=== PATIENT | male | born 1965 | race Hispanic/Latino ===

== ENCOUNTER → 2024-03-16 | Outpatient (CLI) | payer MEDICAID ==
[~2024-03-16] VITALS: Ht 175.3 cm; Wt 68.0 kg
[~2024-03-16] MED LIST: ACET-2079 PO; ACET-2247 PO; ARIP20TA63 PO; ASCO500C18 PO; ASPI-1443 PO; ATOR40TA71 PO; CLOP-31 PO; DOCU100T PO; EPOE10003 IJ; FAMO20TA8 PO; FLUD0.1T2 PO; FOLI0.8T43 PO; GLUC1KIT IJ; INSU3INS3 SQ; LEVO100C4 PO; MIDO10TA PO; SANTO TP; SEVE0.8P PO; TAMS-1 PO; lispro SQ; medihoney TP; prostat PO
[2024-03-16 15:16] LABS: BASOPHILS # (AUTO) 0.08 K/uL (0.00-0.20); BASOPHILS % (AUTO) 0.8 % (0.0-5.0); EOSINOPHILS # (AUTO) 0.77 K/uL (0.00-0.70); EOSINOPHILS % (AUTO) 7.7 % (0.0-8.0); HEMATOCRIT 39.5 % (42-54); IMMATURE GRANULOCYTE ABSOLUTE 0.06 K/uL (0-1); LYMPHOCYTES # (AUTO) 1.1 K/uL (1.0-4.8); LYMPHOCYTES % (AUTO) 11.2 % (21.0-51.0); MEAN CORPUSCULAR HEMOGLOBIN 25.9 pg (27.0-33.0); MEAN CORPUSCULAR HGB CONC 28.4 g/dL (32.0-36.0); MEAN CORPUSCULAR VOLUME 91.4 fL (79-99); MONOCYTES # (AUTO) 0.5 K/uL (0.1-1.0); MONOCYTES % (AUTO) 5.3 % (3.0-13.0); NEUTROPHILS # (AUTO) 7.5 K/uL (1.8-7.7); NEUTROPHILS % (AUTO) 74.4 % (40.0-77.0); PLATELET COUNT (AUTO) 350 K/uL (130-400); RED BLOOD CELL COUNT(AUTO) 4.32 MIL/uL (4.50-6.20); RED CELL DISTRIBUTION WIDTH 18.3 % (11.0-15.5)
[2024-03-16 15:23] VITALS: BP 137/75; PULSE 87; RESP 18; TEMP 97.9
[2024-03-16 15:27] LABS: INR 1.06 (0.85-1.15); PROTHROMBIN TIME 11.4 SEC (9.6-11.6)
[2024-03-16 15:28] LABS: CREATININE 2.8 mg/dL (0.5-1.3); POTASSIUM 4.6 mmol/L (3.5-5.1)
--- NOTE | 2024-03-16 19:47 | EKG ---
[facility] Test Date: 2024-03-16 Test Time: 15:10:21 Pat Name: PAYAL RENEE Department[facility] Room: Gender: M Baggage Smasher: [id number] : 1965 Requested By: ORLANDO AGUILAR Order Number: [id number] Reading MD: Josh Buckley Measurements Intervals [place] Rate: 85 P: 46 CA: 161 QRS: 258 QRSD: 99 T: 62 QT: 395 QTc: 469 Interpretive Statements Sinus rhythm Right Bundle Branch Block with Left Anterior Hemiblockk Low voltage, extremity leads Borderline ST elevation, anterior leads No previous ECG available for comparison Electronically Signed On 03-16-2024 20:16:44 CDT by Josh Buckley Please click the below link to view image of tracing.
== END | disposition home or self-care (01) ==
LOC: DAH 10:00 → EDSTATUS 03-17 09:00
PROVIDERS: ATTEND Student in an Organized Health Care Education/Training Program
DX: I45.10 Unspecified right bundle-branch block (principal); N18.6 End stage renal disease
CPT/HCPCS: 80048; 85025; 85610; 85730; 86850; 86900; 86901; 36415; 93005; A6260

== ENCOUNTER 2024-06-23 07:10 | Day surgery (SDC) | payer MEDICAID ==
[2024-06-19 10:50] VITALS: BP 124/71; PULSE 82; RESP 18; TEMP 97.2
[2024-06-19 10:59] LABS: BASOPHILS # (AUTO) 0.07 K/uL (0.00-0.20); BASOPHILS % (AUTO) 0.9 % (0.0-5.0); EOSINOPHILS # (AUTO) 0.72 K/uL (0.00-0.70); EOSINOPHILS % (AUTO) 9.1 % (0.0-8.0); HEMATOCRIT 37.9 % (42-54); IMMATURE GRANULOCYTE ABSOLUTE 0.03 K/uL (0-1); LYMPHOCYTES # (AUTO) 1.3 K/uL (1.0-4.8); LYMPHOCYTES % (AUTO) 16.9 % (21.0-51.0); MEAN CORPUSCULAR HEMOGLOBIN 27.8 pg (27.0-33.0); MEAN CORPUSCULAR HGB CONC 30.3 g/dL (32.0-36.0); MEAN CORPUSCULAR VOLUME 91.5 fL (79-99); MONOCYTES # (AUTO) 0.7 K/uL (0.1-1.0); MONOCYTES % (AUTO) 8.5 % (3.0-13.0); NEUTROPHILS # (AUTO) 5.1 K/uL (1.8-7.7); NEUTROPHILS % (AUTO) 64.2 % (40.0-77.0); PLATELET COUNT (AUTO) 270 K/uL (130-400); RED BLOOD CELL COUNT(AUTO) 4.14 MIL/uL (4.50-6.20); WHITE BLOOD COUNT (AUTO) 7.9 K/uL (4.8-10.8)
[2024-06-19 11:20] LABS: ALBUMIN 2.6 g/dL (3.5-5.0); BILIRUBIN,TOTAL 0.3 mg/dL (0.2-1.0); CREATININE 5.2 mg/dL (0.5-1.3); POTASSIUM 5.6 mmol/L (3.5-5.1); TOTAL PROTEIN, SERUM 7.7 g/dL (6.0-8.3)
[2024-06-19 11:42] LABS: INR 0.95 (0.85-1.15); PROTHROMBIN TIME 10.7 SEC (9.6-11.6)
[2024-06-19 11:43] LABS: PARTIAL THROMBOPLASTIN TIME 30.8 SEC (26.3-35.5)
[~2024-06-23] VITALS: Ht 175.3 cm; Wt 72.1 kg
[2024-06-23] VITALS (18 sets, daily range): BP systolic 121–159; BP diastolic 52–73; PULSE 75–84; RESP 14–19; TEMP 97.2–97.5
[~2024-06-23 07:10] MED LIST changes: -ACET-2247 PO; +ACET-3859 PO; -ASCO500C18 PO; +ATOR40TA69 PO; -ATOR40TA71 PO; -CLOP-31 PO; +CLOP75TA32 PO; -DOCU100T PO; -EPOE10003 IJ; -FLUD0.1T2 PO; -FOLI0.8T43 PO; -GLUC1KIT IJ; +GUAI100L37 PO; -MIDO10TA PO; +MIDO10TA3 PO; +ONDA-243 PO; -SANTO TP; +ZINC220T4 PO; -lispro SQ; -medihoney TP; -prostat PO
[2024-06-23] MEDS ORDERED: HEParin-NS 1,000 UNIT/500 ML 500 ML IV ONE (07:37)
[2024-06-23 07:42] LABS: CREATININE 4.3 mg/dL (0.5-1.3); POTASSIUM 5.3 mmol/L (3.5-5.1)
[2024-06-23] MEDS ORDERED: proPOFol 10 MG/ML 20ML VIAL IV ONE (08:38)
[2024-06-23] MEDS ORDERED: NEOSTIGMINE METHYLSULFATE 1MG/ML IV ONE (08:38)
[2024-06-23] MEDS ORDERED: SUCCINYLCHOLINE CHLORIDE 20 MG/ML 10 ML VIAL ONE (08:38)
[2024-06-23] MEDS ORDERED: LIDOCAINE PF 100MG/5ML (2%) SYRINGE 5ML ONE (08:38)
[2024-06-23] MEDS ORDERED: GLYCOPYRROLATE 0.2 MG/ML 5 ML VIAL ONE (08:38)
[2024-06-23] MEDS ORDERED: dexaMETHasone SOD PHOSPHATE 10MG/ML 1ML VIAL ONE (08:38)
[2024-06-23] MEDS ORDERED: rocuRONium bROMide 10MG/1ML 5ML VL ONE (08:38)
[2024-06-23] MEDS ORDERED: ondanSETRON 4MG INJ ONE (08:38)
[2024-06-23] MEDS ORDERED: FENTanyl CITRate PF 50 MCG/1 ML 2ML VIAL ONE (08:39)
[2024-06-23] MEDS ORDERED: MIDAZOLAM HCL 1 MG/ML 2ML VIAL ONE (08:39)
[2024-06-23] MEDS ORDERED: ketaMINE 50MG/ML SYRINGE 50 MG/ML DISP.SYRIN ONE (08:43)
[2024-06-23] MEDS ORDERED: SUGAMMADEX SODIUM 200 MG/2 ML VIAL IV ONE (08:45)
[2024-06-23] MEDS: ceFAZolin SODIUM 2 GM VIAL IVPB ONE (09:12)
[2024-06-23] MEDS: ceFAZolin SODIUM 2 GM VIAL ONE (09:42)
[2024-06-23] MEDS: 0.9% NACL 500ML IV.SOLN 500 ML IV ONE (09:46)
[2024-06-23] MEDS ORDERED: NALoxone HCL 0.4 MG/1 ML ML ONE (10:22)
[2024-06-23] MEDS ORDERED: HEParin 10,000 UNIT/10ML (1,000 UNIT/ML) VIAL ONE (10:26)
--- NOTE | 2024-06-23 10:52 | OP ---
Operative Note: DATE OF PROCEDURE: 06/23/24 SURGEON: ORLANDO AGUILAR MD STUDIO TECHNICIAN VIDEO OPERATOR: [] PREOPERATIVE DIAGNOSIS: End-stage renal disease POSTOPERATIVE DIAGNOSIS: End-stage renal disease PROCEDURE: Left upper extremity brachiocephalic fistula creation INDICATIONS: Patient needs access for dialysis ESTIMATED BLOOD LOSS: 5cc Devices left in place: None Anesthesia: General endotracheal DESCRIPTION OF PROCEDURE: Patient is brought to the operating room placed on the operating table in a supine position. Once general endotracheal anesthesia is achieved patient's left upper extremity up to the axilla is prepped and draped in sterile fashion. Using ultrasound we identified the left cephalic vein and confirmed that it was adequate for fistula creation therefore the surgical plan was changed to proceed with a brachiocephalic fistula creation. We then proceeded to create a transverse incision at the antecubital fossa and dissected down through the skin and subcutaneous tissue to expose the cephalic vein vein. We exposed that for a length of about 6 cm. I then proceeded to release the cephalic vein in the antecubital fossa which is the upper arm and released it from attachments and any branches. Suture ligated the branches and transposed it to the medial portion of the arm to be able to create a anastomosis. We then proceeded to expose the brachial artery for a length of about 4 cm and obtained proximal and distal control. We then asked anesthesia to give 5000 units of heparin. I then proceeded to clamp the cephalic vein proximally and distally divided it at the level of the elbow. And suture ligated the distal and end. We then proceeded to to dilate the vein with heparinized saline and ensured that there were no leaks from all the branches were clipped or sutured. I then clamped the brachial artery proximally and distally. I then proceeded to create a end-to-side anastomosis between the brachial artery and the cephalic vein at the antecubital fossa with 6-0 Prolene. I then opened up the clamp to the vein first and that there to be backflow. And then proceeded to open the proximal clamp on the artery to flush out the anastomosis and then open the distal clamp. I then proceeded to suture the anastomosis. We ensured with a Doppler that we had a strong palmar arch pulse at the left hand and ulnar and radial pulses as well. We had a good thrill throughout the fistula. We then close the skin incision in 2 layers with subcutaneous tissue being closed with 3-0 Vicryl in running fashion and the skin was closed with 4-0 Monocryl in running fashion. Dermabond was applied over top and skin dressings were applied over top patient tolerated the procedure well all counts were correct x2 at the end of the procedure. ORLANDO AGUILAR MD Jun 23, 2024 10:52
--- NOTE | 2024-06-23 11:59 | NUR ---
Full and complete discharge instructions given to Patient and Family both verbally and in writing. All questions answered. Tolerating PO fluids well. Voiced understanding to SURGICAL procedure and follow up. Neurovascularly intact. Thrill and bruit positive to new L AVG. Wound vac and Abbott catheter both patent and properly secured. Dressing clean and dry. PIV removed with catheter tip intact. Called report in full to Neyda Nurse, Janki Guerra @ . W\C to [facility] with [place] transport to Rehab facility.
== END 2024-06-23 12:00 ==
LOC: DAH 07:10
PROVIDERS: ATTEND Student in an Organized Health Care Education/Training Program
DX: I12.0 Hypertensive chronic kidney disease with stage 5 chronic kidney disease or end stage renal disease (principal); E11.22 Type 2 diabetes mellitus with diabetic chronic kidney disease; N18.6 End stage renal disease; Z79.01 Long term (current) use of anticoagulants; Z89.422 Acquired absence of other left toe(s); Z89.421 Acquired absence of other right toe(s); Z79.82 Long term (current) use of aspirin; Z79.899 Other long term (current) drug therapy
CPT/HCPCS: 80053; 85025; 85610; 85730; 86850 ×2; 86900 ×2; 86901 ×2; 36415 ×2; 36821; 80048; 82948 ×2; A6260; A4663; J7040; J3010; J2310; J1100; J0330; J3490 ×3; J2003; J1644 ×2; J2250; J2704; J2405; J2710; J0690 ×2; A4649 ×2; C1713 ×2; A4930; A4215; A4222; A4221; A4216; A4223 ×2; A4600